=== PATIENT | male | born 1965 | race Caucasian/White ===

== ENCOUNTER 2019-02-25 09:47 | Day surgery (SDC) | payer OTHER ==
[~2019-02-25 09:47] MED LIST: NACL 0.9% 1000 ML 1,000 ML IV SCH
[2019-02-25] MEDS ORDERED: XYLOCAINE MPF 2% ONE (11:00)
[2019-02-25] MEDS ORDERED: DIPRIVAN 10 MG/ML IV ONE ×2 (11:37)
--- NOTE | 2019-02-25 11:42 | Anesthesia Consultation ---
Anesthesia Consult and Med Hx Date of service: 02/25/19 - Airway Anesthetic Teeth Evaluation: Good ROM Head & Neck: Adequate Mental/Hyoid Distance: Adequate Mallampati Class: Class II Intubation Access Assessment: Good - Pulmonary Exam CTA: Yes - Cardiac Exam Cardiac Exam: RRR - Pre-Operative Health Status ASA Pre-Surgery Classification: ASA2 Proposed Anesthetic Plan: MAC - Pulmonary Hx Smoking: Yes - Cardiovascular System Hx Hypertension: Yes
--- NOTE | 2019-02-25 11:43 | Anesthesia Day of Surgery ---
Anesthesia Day of Surgery - Day of Surgery Patient Examined: Yes Patient H&P Reviewed: Yes Patient is NPO: Yes
--- NOTE | 2019-02-25 12:05 | Short Stay Summary ---
Short Stay Documentation Date of service: 02/25/19 Narrative H&P: The patient presents for colon cancer screening, no prior studies. Average risk profile. - History Past Medical History: hypertension, hyperlipidemia Past Surgical History: No surgical history Social history: lives with family, smoking, no alcohol abuse - Allergies and Medications Current Medications: Allergies No Known Allergies Allergy (Verified 02/25/19 10:23) Home Medications Medication Instructions Recorded Confirmed Last Taken Type Losartan [Cozaar] 1 tab PO DAILY 02/25/19 02/25/19 02/22/19 09:00 History Losartan [Cozaar] 100 mg PO DAILY 02/25/19 02/25/19 02/22/19 History Simvastatin 1 tab PO DAILY 02/25/19 02/25/19 02/22/19 History Simvastatin 20 mg PO DAILY 02/25/19 02/25/19 02/22/19 History Triamter/Hctz 37.5-25 mg 1 tab PO QDAY 02/25/19 02/25/19 02/18/19 History [Maxzide-25] Active Medications Sodium Chloride (Nacl 0.9% 1000 Ml) 1,000 mls @ 50 mls/hr IV DIRECT SHAYLA Last Admin: 02/25/19 11:20 Dose: 50 mls/hr Documented by: - Physical exam General appearance: no acute distress, well-nourished Integumentary: no rash, no growths, no abnormal pigmentation HEENT: Atraumatic, PERRLA, EOMI, Mucous membr. moist/pink Lungs: Clear to auscultation, Normal air movement Breasts: deferred Heart: Regular rate, Normal S1, Normal S2, No murmurs Gastrointestinal: normoactive bowel sounds, no tenderness, no distended, no masses, no guarding, no organomegaly, no obese Male Genitourinary: deferred Rectal Exam: normal exam-external/orifice, normal rectal tone, no mass Extremities: no ischemia, pulses intact, pulses symmetrical, No edema, normal temperature, normal color, Full ROM Neurological: Normal gait, Normal speech, Strength at 5/5 X4 ext, Normal tone, Sensation intact, Cranial nerves 3-12 NL - Brief post op/procedure progress note Date of procedure: 02/25/19 Findings: report dictated Estimated blood loss: none Pathology: none Condition: stable - Disposition Condition at discharge: Good Disposition: DC-01 TO HOME OR SELFCARE - Discharge Diagnoses (1) Colon cancer screening Status: Acute Short Stay Discharge Plan Activity: other (no driving for 24 hours) Weight Bearing Status: Full Weight Bearing Diet: regular Follow up with: JANET CANCHOLA MD [Primary Care Provider] - 7 Days
--- NOTE | 2019-02-25 12:06 | Operative Report ---
Operative Report Operative Report: Date of procedure: 02/25/2019 Preprocedure diagnosis: Colon cancer screening. No prior studies. Average ris k. Post procedure diagnosis: Normal study. Procedure: Colonoscopy to the cecum Endoscopist: Dr. Tuttle Anesthesia: Monitored anesthesia care per anesthesia department Estimated blood loss: 0 Medications: Monitored anesthesia care. See separate report by anesthesia for details. After careful discussion of the nature and purpose of the procedure as well as details of the technique risks benefits and alternatives the patient gave consent. Please see recent history and physical from the office. The patient was placed in the left lateral decubitus position and medicated per anesthesia. A rectal exam was performed sphincter tone was normal there were no masses palpable. The Clion 570 scope was passed transanally and advanced under continuous direct vision without difficulty to the cecum. The colon was well prepared. The cecum was normal. The ascending colon was normal and on forward and retroflexed views. The transverse colon, descending colon, and sigmoid colon were normal. The rectum was normal on forward and retroflexed views. The procedure was well-tolerated overall and the patient was observed in recovery. Conclusions: Normal colonoscopy to the cecum. Plan: Colonoscopy in 10 years, sooner if clinically indicated. Signed electronically: Mehrdad Tuttle M.D.
[2019-02-25 12:38] VITALS: BP 123/93
== END 2019-02-25 09:48 | disposition home or self-care (01) ==
LOC: GIO 09:47
PROVIDERS: ATTEND Internal Medicine Gastroenterology
DX: Z12.11 Encounter for screening for malignant neoplasm of colon (principal); E78.00 Pure hypercholesterolemia, unspecified; F17.210 Nicotine dependence, cigarettes, uncomplicated; I10 Essential (primary) hypertension; Z79.899 Other long term (current) drug therapy
CPT/HCPCS: 45378; J2704; J7030